=== PATIENT | male | born 2000 | race Asian ===

== ENCOUNTER 2024-02-05 18:43 | Emergency (ER) | payer OTHER, SELFPAY ==
[2024-02-05 18:54] VITALS: BP 112/70; PULSE 74; RESP 16; TEMP 36.9; O2SAT 98; BMI 20.7
--- NOTE | 2024-02-05 19:06 | ED.FALL ---
HPI - Fall General Chief Complaint: Fall Stated Complaint: Fall off ladder, chin laceration, arm px swelling Time Seen by Provider: 02/05/24 19:01 Source: patient Mode of arrival: Ambulatory History of Present Illness HPI Narrative: Patient 23-year-old healthy male who presents today after fall off ladder about 10 ft. He did hit his head he did not lose consciousness he has not had any nausea or vomiting. He has obvious laceration to his chin and is complaining of some left elbow pain. The fall happened approximately 4 hours go. He has really no other complaints denies any sort of chest pain or rib pain no back pain. He has been ambulatory. Last tetanus was in 2006 Related Data Allergies Allergy/AdvReac Type Severity Reaction Status Date / Time No Known Drug Allergies Allergy Verified 02/05/24 18:57 Patient History Social History Smoking Status: Current every day smoker Smoking Status: Current every day smoker tobacco type: cigarettes and vaping alcohol intake frequency: 0-2 drinks per day Substance Use Type: does not use Exam Initial Vital Signs Initial Vital Signs: Vital Signs Temperature 98.4 F 02/05/24 18:54 Pulse Rate 74 02/05/24 18:54 Respiratory Rate 16 02/05/24 18:54 Blood Pressure 112/70 02/05/24 18:54 Pulse Oximetry 98 02/05/24 18:54 Oxygen Delivery Method Room Air 02/05/24 18:54 GENERAL: Alert well-appearing 23-year-old male HEENT: Head posterior left contusion, no depressions, EOMI, pupils reactive, face symmetric, moist mucous membranes, no hemotympanum, no septal hematoma NECK: Supple, full range of motion, no step-offs, nontender on vertebrae CARDIOVASCULAR: Regular rate and rhythm without murmurs, rubs or gallops. RESPIRATORY: Breath sounds equal bilaterally, no wheezes rales or rhonchi. No crepitations, no subcutaneous air, chest is nontender, no signs of trauma ABDOMEN: Soft, nontender. Normoactive bowel sounds all 4 quadrants. No guarding or rebound. BACK: Nontender vertebrae, no step-offs, no contusions PELVIS: stable. EXTREMITIES: Normal range of motion, no clubbing or edema. Right upper extremity: Within normal limits Left upper extremity: Swelling over left elbow able to flex extend and rotate no contusion sensation over deltoid intact distal radial pulse intact Right lower extremity: Within normal limits Left lower extremity:Within normal limits NEUROLOGICAL: Cranial nerves II through XII grossly intact. Normal gait and speech. SKIN: Chin laceration 4 cm Procedures Laceration Repair Laceration 1: Site: face (chin) Size (cm): 4 Description: linear Depth: simple, single layer Local Anesthetic: lidocaine 1% Amount of anesthesia used (mL): 8 Pre-repair: wound explored, irrigated extensively and deep structures intact Skin layer closed with: nylon Skin layer suture size: 4-0 Number of sutures: 4 Technique: simple, interrupted (3) and horizontal mattress (1) Course Orders Ordered: ED Orders 02/05/24 19:05 CT cervical spine wo con Stat CT head/brain wo con Stat Chest [XR chest 2V] Stat XR elbow LT min 3V Stat Discontinued Medications Diphtheria/Tetanus/Acell Pertussis (Tet,Diph,Pertuss(Acell),Vac/Pf 0.5 Ml Syringe) 0.5 ml IM .ONCE ONE Stop: 02/05/24 19:06 Last Admin: 02/05/24 19:29 Dose: Not Given Documented By: RICHMOND Lidocaine HCl (Lidocaine 1% 20 Ml) 20 ml INJ INTRA-OP ONE Stop: 02/05/24 19:44 Last Admin: 02/05/24 20:13 Dose: 20 ml Documented By: RICHMOND Vital Signs Vital signs: Vital Signs - 8 hr 02/05/24 18:54 Temperature 98.4 F Pulse Rate 74 Respiratory Rate 16 Blood Pressure 112/70 Pulse Oximetry 98 Oxygen Delivery Method Room Air MDM - Fall Imaging Data CT scan - head: Radiologist's Impression: PROCEDURE: CT HEAD/BRAIN WO CON INDICATIONS: fall 10 feet TECHNIQUE: Noncontrast 4.5 mm thick angled axial sections acquired from the foramen magnum to the vertex, with coronal and sagittal reformats. For radiation dose reduction, the following was used: automated exposure control, adjustment of mA and/or kV according to patient size. COMPARISON: None. FINDINGS: Image quality: Diagnostic. CSF spaces: Basal cisterns are patent. No extra-axial fluid collections. Ventricles are normal in size and shape. Brain: No midline shift. No intracranial masses or hemorrhage. Bull-white matter interface is normal. Skull and face: Left temporoparietal subgaleal hematoma. No associated left temporal bone fracture. No associated epidural hematoma identified. Calvarium and visualized facial bones are intact, without suspicious lesions. Sinuses: Visualized sinuses and mastoids are clear. IMPRESSION: Left temporoparietal subgaleal hematoma. No acute intracranial process identified. Dictated by: Mina Ortiz M.D. on 02/05/2024 at 19:44 Approved by: Mina Ortiz M.D. on 02/05/2024 at 19:46 Extremity x-ray #1: Radiologist's Impression: PROCEDURE: XR ELBOW LT MIN 3V INDICATIONS: fall pain TECHNIQUE: 3 views of the elbow were acquired. COMPARISON: None. FINDINGS: Bones: No fractures or dislocations. No suspicious bony lesions. Soft tissues: No elbow joint effusion. No suspicious soft tissue calcifications. IMPRESSION: No acute bony abnormality or significant joint effusion. Dictated by: Mina Ortiz M.D. on 02/05/2024 at 19:31 Approved by: Mina Ortiz M.D. on 02/05/2024 at 19:31 Chest x-ray: Radiologist's Impression: PROCEDURE: XR CHEST 2V INDICATIONS: fall TECHNIQUE: 2 views of the chest were acquired. COMPARISON: None. FINDINGS: Surgical changes and devices: None. Lungs and pleura: Lungs are clear. No pleural effusions or pneumothorax. Mediastinum: Mediastinal contours are normal. Heart size is normal. Bones and chest wall: No suspicious bony abnormalities. Soft tissues appear unremarkable. IMPRESSION: No acute cardiopulmonary abnormality is seen. Dictated by: Mina Ortiz M.D. on 02/05/2024 at 19:31 CT - cervical spine: Radiologist's Impression: PROCEDURE: CT CERVICAL SPINE WO CON INDICATIONS: fall 10 feet TECHNIQUE: Noncontrast 3 mm thick sections acquired from the skull base to the T4 level. Sagittal and coronal reformats were then constructed. For radiation dose reduction, the following was used: automated exposure control, adjustment of mA and/or kV according to patient size. COMPARISON: None. FINDINGS: Image quality: Excellent. Bones: No fractures or dislocations. Visualized superior ribs are intact. Soft tissues: Prevertebral soft tissues are normal in thickness. No paravertebral hematomas. No apical pneumothoraces. IMPRESSION: 1. No acute cervical fracture or dislocation. 2. No significant cervical spondylitic change. MDM Narrative Medical decision making narrative: Patient 23-year-old presents today as a modified trauma for fall off ladder about 10 ft. He does have a hematoma on his scalp and obvious chin laceration and complaining of left elbow pain. No other injuries Imaging has been reviewed he does have a left temporal subgaleal hematoma elbow x-ray is negative and CT cervical spine is also negative. His tetanus is updated here in the ED His chin is sutured easily. He is given instructions he is offered Tylenol or Motrin but declined Discharge Plan Departure Patient Disposition: Home Clinical Impression: Chin laceration, Other sprain of left elbow, initial encounter, Head injury Instructions: DI for Laceration Repair, Closed Head Injury Activity Restrictions/Additional Instructions: *You have been diagnosed with closed head injury, chin laceration left elbow sprain *What to do: Keep your sutures clean and dry soap and water shower and bathe normally. Apply antibiotic ointment 1-2 times daily. Have sutures removed in about 7-10 days. Elevate and ice her left elbow no broken bone You do have contusion on your head ice as needed *Continue to take medications as directed Tylenol Motrin as needed for pain *Follow up with your primary care provider in 2-3 days or call [phone] *Return to ER if you should have persistent vomiting increasing pain or weakness redness swelling drainage or any new, worsening or concerning symptoms Referrals: Miscellaneous,[facility] [Primary Care Provider] - Stand Alone Forms: Patient Portal/API
[2024-02-05] MEDS: LIDOCAINE 1% 20 ML INJ (20:13)
== END 2024-02-05 20:16 | disposition home or self-care (01) ==
PROVIDERS: Emergency Provider Emergency Medicine
DX: S01.81XA Laceration without foreign body of other part of head, initial encounter (principal); S00.03XA Contusion of scalp, initial encounter; S53.402A Unspecified sprain of left elbow, initial encounter; W11.XXXA Fall on and from ladder, initial encounter
CPT/HCPCS: 12013; 70450; 71046; 72125; 73080; 99284